=== PATIENT | male | born 1970 | race American Indian/Alaskan Native ===

== ENCOUNTER 2020-12-28 09:44 | Outpatient (CLI) | payer OTHER ==
--- NOTE | 2020-12-28 10:48 | XRay Report ---
AP AND LATERAL VIEWS OF BOTH FEET INDICATION: BILATERAL FOOT PAIN. COMPARISON: No relevant prior imaging study available. FINDINGS: Left foot: No acute skeletal abnormality. No significant degenerative changes. No soft tissue swellin g or foreign bodies. Right foot: No acute skeletal abnormality. No significant degenerative changes. There is foreshorteni ng at the fourth metatarsal. This may be congenital. No soft tissue swelling or foreign bodies. IMPRESSION: 1. No acute findings. RIGHT HAND 2 VIEWS INDICATION: Right hand pain. COMPARISON: No relevant prior imaging study available. FINDINGS: No acute skeletal abnormality. Bone mineralization is normal. There is mild arthritic change at the t arsometatarsal articulations. Joint spaces are otherwise maintained. No erosions or soft tissue calci fications. IMPRESSION: 1. No acute findings. Signer Name: Tommy Berrios MD Signed: 12/28/2020 10:44 AM Workstation Name: [id number]
== END 2020-12-28 09:45 | disposition home or self-care (01) ==
LOC: XRAY 09:44
PROVIDERS: ATTEND Internal Medicine
DX: M19.041 Primary osteoarthritis, right hand (principal); M79.671 Pain in right foot